=== PATIENT | male | born 1940 | race Caucasian/White ===

== ENCOUNTER 2018-07-05 21:11 | Observation (INO) ==
[2018-07-05] MEDS ORDERED: KETOROLAC 30 MG/1 ML VIAL IV STA (21:50)
[2018-07-05 21:59] LABS: Basophils % 0.1 % (0.0-0.8); Eosinophils # 0.3 10*3/uL (0.0-0.87); Eosinophils % 3.2 % (0.00-10.9); Hematocrit 42.2 VOL% (42.0-52.0); Hemoglobin 13.4 GM/DL (14.0-18.0); Immature Granulocytes % 0.4 %; Immature Granulocytes Absolute 0.04 #; Lymphocytes # 1.4 10*3/uL (1.4-4.0); Lymphocytes % 16.1 % (21.2-54.2); Mean Corpuscular HGB Conc 31.8 GM/DL (32-36); Mean Corpuscular Hemoglobin 30 PG (27-34); Mean Corpuscular Volume 95.5 FL (87-102); Mean Platelet Volume 11.4 FL (9.6-12.0); Monocytes # 1.3 10*3/uL (0.11-0.8); Monocytes % 14.1 % (1.7-12.7); Neutrophils # 5.9 10*3/uL (1.4-7.4); Neutrophils % 66.1 % (38.7-73.9); Platelet Count 125 T/CUMM (130-400); Red Blood Count 4.42 MC/CUMM (3.8-5.5); Red Cell Distribution Width 12.9 % (9.3-17.3); White Blood Count 8.9 T/CUMM (4-12)
[2018-07-05 22:04] LABS: Apearance,Urine CLEAR (Clear); Bilirubin,Urine Negative (Negative); Blood, Urine Negative (Negative); Glucose,Urine (UA) Negative (Negative); Ketones,Urine Negative (Negative); Nitrite,Urine Negative (Negative); Protein,Urine Negative; RBC,Urine <1 /HPF (0-4); Squamous Epithelial Cell,Urine Occasional /HPF (0-10); Urine Color Straw (Yellow); Urine Urobilinogen < 2.0 EU/DL (0.2-1.0); WBC,Urine 1 /HPF (0-6)
[2018-07-05 22:15] LABS: Albumin 3.1 G/DL (3.4-5.0); Bilirubin,Total 0.4 MG/DL (0.2-1.0); Calcium 8.5 MG/DL (8.5-10.1); Osmolality,Calculated 291.7 MOS/KG (273-304); Potassium 4.2 MMOL/L (3.5-5.1); Total Protein 6.5 G/DL (6.4-8.3)
[2018-07-05] MEDS ORDERED: CEFEPIME 2,000 MG in SODIUM CHLORIDE 0.9% 100 ML IV STA (23:54)
[2018-07-05] MEDS ORDERED: VANCOMYCIN INJ 1,000 MG in SODIUM CHLORIDE 0.9% 250 ML IV STA (23:55)
[2018-07-06] MEDS ORDERED: ALBUTEROL/IPRATROPIUM 3 ML NEB RESP TX STA (00:31)
[2018-07-06] MEDS ORDERED: DOCUSATE SODIUM 100 MG CAPSULE PO PRN (00:33)
[2018-07-06] MEDS ORDERED: ONDANSETRON 4 MG/2 ML VIAL IV PRN (00:33)
[2018-07-06] MEDS ORDERED: ALBUTEROL 2.5 MG/3 ML NEB RESP TX PRN (00:49)
[2018-07-06] MEDS: methylPREDNISolone SOD SUC 40 MG/1 ML VIAL IV SCH ×3 (01:54→16:51)
[2018-07-06] MEDS: ACETAMINOPHEN 325 MG TABLET PO PRN ×2 (01:57→18:27)
[2018-07-06] MEDS: traZODone 50 MG TABLET PO PRN ×2 (01:57→21:01)
[2018-07-06] MEDS: ALBUTEROL/IPRATROPIUM 3 ML NEB RESP TX SCH ×4 (02:05→18:30)
[2018-07-06] MEDS: LEVOFLOXACIN INJ 750 MG in PREMIX 1 EACH IV SCH ×2 (03:31→03:35)
[2018-07-06] MEDS: PIPERACILLIN/TAZOBACTAM 3,375 MG in SODIUM CHLORIDE 0.9% 100 ML IV SCH ×3 (05:05→21:17)
[2018-07-06 05:35] LABS: Basophils % 0.1 % (0.0-0.8); Eosinophils # 0.1 10*3/uL (0.0-0.87); Eosinophils % 0.9 % (0.00-10.9); Hematocrit 38.6 VOL% (42.0-52.0); Hemoglobin 12.5 GM/DL (14.0-18.0); Immature Granulocytes % 0.5 %; Immature Granulocytes Absolute 0.04 #; Lymphocytes # 0.3 10*3/uL (1.4-4.0); Lymphocytes % 4.3 % (21.2-54.2); Mean Corpuscular HGB Conc 32.4 GM/DL (32-36); Mean Corpuscular Hemoglobin 31 PG (27-34); Mean Corpuscular Volume 94.4 FL (87-102); Mean Platelet Volume 11.7 FL (9.6-12.0); Monocytes # 0.3 10*3/uL (0.11-0.8); Monocytes % 3.6 % (1.7-12.7); Neutrophils # 6.8 10*3/uL (1.4-7.4); Neutrophils % 90.6 % (38.7-73.9); Platelet Count 127 T/CUMM (130-400); Red Blood Count 4.09 MC/CUMM (3.8-5.5); Red Cell Distribution Width 12.9 % (9.3-17.3); White Blood Count 7.5 T/CUMM (4-12)
[2018-07-06 06:09] LABS: Calcium 8.1 MG/DL (8.5-10.1); Potassium 4.3 MMOL/L (3.5-5.1)
[2018-07-06 06:15] LABS: Eosinophils 1 % (0-10); Hypochromasia 1+; Lymphocytes 3 % (20-55); Ovalocytes Slight; Platelet Estimate Normal; Segmented Neutrophils 92 % (50-85); Total Cells Counted 100
[2018-07-06] MEDS: PRASUGREL 10 MG TABLET PO SCH (08:53)
[2018-07-06] MEDS: PANTOPRAZOLE 40 MG TABLET PO SCH (08:53)
[2018-07-06] MEDS: THEOPHYLLINE ER (24 HR) 400 MG TABLET PO SCH (08:53)
[2018-07-06] MEDS: ASPIRIN 325 MG TABLET PO SCH (08:53)
[2018-07-06] MEDS: guaiFENesin/DM ER 600-30 MG TABLET PO SCH ×2 (08:53→21:00)
[2018-07-06] MEDS: ATORVASTATIN 40 MG TABLET PO SCH (08:53)
[2018-07-06] MEDS: ENOXAPARIN 40 MG/0.4 ML SYRINGE SUBCUT SCH (08:54)
[2018-07-06] MEDS: GABAPENTIN 300 MG CAPSULE PO SCH (21:00)
[2018-07-07] MEDS ORDERED: NITROGLYCERIN SL 0.4 MG TABLET SL ONE (00:19)
[2018-07-07] MEDS ORDERED: ASPIRIN CHEW 81 MG TABLET PO ONE (00:20)
[2018-07-07] MEDS ORDERED: MORPHINE 4 MG/1 ML VIAL IV PRN (00:22)
[2018-07-07] MEDS ORDERED: NITROGLYCERIN SL 0.4 MG TABLET SL PRN (00:22)
[2018-07-07 00:34] LABS: Basophils % 0.1 % (0.0-0.8); Hematocrit 36.2 VOL% (42.0-52.0); Hemoglobin 11.7 GM/DL (14.0-18.0); Immature Granulocytes % 0.9 %; Lymphocytes # 0.3 10*3/uL (1.4-4.0); Lymphocytes % 2.8 % (21.2-54.2); Mean Corpuscular HGB Conc 32.3 GM/DL (32-36); Mean Corpuscular Hemoglobin 31 PG (27-34); Mean Corpuscular Volume 94.3 FL (87-102); Mean Platelet Volume 11.8 FL (9.6-12.0); Monocytes # 0.4 10*3/uL (0.11-0.8); Monocytes % 3.6 % (1.7-12.7); Neutrophils # 10.5 10*3/uL (1.4-7.4); Neutrophils % 92.6 % (38.7-73.9); Platelet Count 125 T/CUMM (130-400); Red Blood Count 3.84 MC/CUMM (3.8-5.5); Red Cell Distribution Width 12.8 % (9.3-17.3); White Blood Count 11.3 T/CUMM (4-12)
[2018-07-07] MEDS: ALBUTEROL/IPRATROPIUM 3 ML NEB RESP TX SCH ×4 (00:35→18:59)
[2018-07-07] MEDS: methylPREDNISolone SOD SUC 40 MG/1 ML VIAL IV SCH ×3 (00:57→18:25)
[2018-07-07] MEDS: ACETAMINOPHEN 325 MG TABLET PO PRN (01:00)
[2018-07-07 01:09] LABS: Albumin 2.7 G/DL (3.4-5.0); Bilirubin,Total 0.6 MG/DL (0.2-1.0); Osmolality,Calculated 298.3 MOS/KG (273-304); Potassium 4.3 MMOL/L (3.5-5.1); Total Protein 5.6 G/DL (6.4-8.3)
[2018-07-07 03:28] LABS: Band Neutrophils 1 % (0-10); Lymphocytes 6 % (20-55); Platelet Estimate Decreased; Segmented Neutrophils 90 % (50-85); Total Cells Counted 100
[2018-07-07] MEDS: LEVOFLOXACIN INJ 750 MG in PREMIX 1 EACH IV SCH (03:30)
[2018-07-07 04:55] LABS: Basophils % 0.1 % (0.0-0.8); Hematocrit 35.6 VOL% (42.0-52.0); Hemoglobin 11.5 GM/DL (14.0-18.0); Immature Granulocytes % 0.8 %; Immature Granulocytes Absolute 0.09 #; Lymphocytes # 0.3 10*3/uL (1.4-4.0); Lymphocytes % 2.7 % (21.2-54.2); Mean Corpuscular HGB Conc 32.3 GM/DL (32-36); Mean Corpuscular Hemoglobin 30 PG (27-34); Mean Platelet Volume 12.6 FL (9.6-12.0); Monocytes # 0.3 10*3/uL (0.11-0.8); Monocytes % 2.6 % (1.7-12.7); Neutrophils # 10.6 10*3/uL (1.4-7.4); Neutrophils % 93.8 % (38.7-73.9); Platelet Count 123 T/CUMM (130-400); Red Blood Count 3.83 MC/CUMM (3.8-5.5); White Blood Count 11.3 T/CUMM (4-12)
[2018-07-07 05:23] LABS: Calcium 8.2 MG/DL (8.5-10.1); Osmolality,Calculated 298.1 MOS/KG (273-304); Potassium 4.4 MMOL/L (3.5-5.1)
[2018-07-07] MEDS: PIPERACILLIN/TAZOBACTAM 3,375 MG in SODIUM CHLORIDE 0.9% 100 ML IV SCH ×3 (05:31→20:30)
[2018-07-07 06:27] LABS: Band Neutrophils 2 % (0-10); Lymphocytes 3 % (20-55); Platelet Estimate Decreased; Segmented Neutrophils 93 % (50-85); Total Cells Counted 100
[2018-07-07] MEDS: ASPIRIN 325 MG TABLET PO SCH (09:58)
[2018-07-07] MEDS: guaiFENesin/DM ER 600-30 MG TABLET PO SCH ×2 (09:58→20:26)
[2018-07-07] MEDS: PANTOPRAZOLE 40 MG TABLET PO SCH (09:58)
[2018-07-07] MEDS: ATORVASTATIN 40 MG TABLET PO SCH (09:58)
[2018-07-07] MEDS: THEOPHYLLINE ER (24 HR) 400 MG TABLET PO SCH (09:58)
[2018-07-07] MEDS: PRASUGREL 10 MG TABLET PO SCH (09:58)
[2018-07-07] MEDS: ENOXAPARIN 40 MG/0.4 ML SYRINGE SUBCUT SCH (09:59)
[2018-07-07] MEDS: GABAPENTIN 300 MG CAPSULE PO SCH (20:26)
[2018-07-08] MEDS: ALBUTEROL/IPRATROPIUM 3 ML NEB RESP TX SCH ×4 (00:31→20:18)
[2018-07-08] MEDS: methylPREDNISolone SOD SUC 40 MG/1 ML VIAL IV SCH ×3 (00:32→17:37)
[2018-07-08] MEDS: LEVOFLOXACIN INJ 750 MG in PREMIX 1 EACH IV SCH (02:49)
[2018-07-08] MEDS: PIPERACILLIN/TAZOBACTAM 3,375 MG in SODIUM CHLORIDE 0.9% 100 ML IV SCH ×3 (04:59→21:03)
[2018-07-08 05:37] LABS: Basophils % 0.1 % (0.0-0.8); Hematocrit 37.6 VOL% (42.0-52.0); Hemoglobin 11.8 GM/DL (14.0-18.0); Immature Granulocytes % 0.7 %; Lymphocytes # 0.3 10*3/uL (1.4-4.0); Lymphocytes % 1.8 % (21.2-54.2); Mean Corpuscular HGB Conc 31.4 GM/DL (32-36); Mean Corpuscular Hemoglobin 30 PG (27-34); Mean Corpuscular Volume 95.7 FL (87-102); Mean Platelet Volume 12.4 FL (9.6-12.0); Monocytes # 0.3 10*3/uL (0.11-0.8); Monocytes % 2.1 % (1.7-12.7); Neutrophils # 14.2 10*3/uL (1.4-7.4); Neutrophils % 95.3 % (38.7-73.9); Platelet Count 142 T/CUMM (130-400); Red Blood Count 3.93 MC/CUMM (3.8-5.5); Red Cell Distribution Width 13.2 % (9.3-17.3); White Blood Count 14.9 T/CUMM (4-12)
[2018-07-08 05:46] LABS: Calcium 8.3 MG/DL (8.5-10.1); Potassium 4.1 MMOL/L (3.5-5.1)
[2018-07-08 06:03] LABS: Hypochromasia 1+; Lymphocytes 2 % (20-55); Platelet Estimate Adequate; Segmented Neutrophils 96 % (50-85); Total Cells Counted 100
[2018-07-08] MEDS: PANTOPRAZOLE 40 MG TABLET PO SCH (08:28)
[2018-07-08] MEDS: ASPIRIN 325 MG TABLET PO SCH (08:28)
[2018-07-08] MEDS: THEOPHYLLINE ER (24 HR) 400 MG TABLET PO SCH (08:28)
[2018-07-08] MEDS: guaiFENesin/DM ER 600-30 MG TABLET PO SCH ×2 (08:28→21:03)
[2018-07-08] MEDS: PRASUGREL 10 MG TABLET PO SCH (08:28)
[2018-07-08] MEDS: ENOXAPARIN 40 MG/0.4 ML SYRINGE SUBCUT SCH (08:29)
[2018-07-08] MEDS: ATORVASTATIN 40 MG TABLET PO SCH (08:29)
[2018-07-08] MEDS: GABAPENTIN 300 MG CAPSULE PO SCH (21:03)
[2018-07-09] MEDS: ALBUTEROL/IPRATROPIUM 3 ML NEB RESP TX SCH ×2 (00:39→08:06)
[2018-07-09] MEDS: methylPREDNISolone SOD SUC 40 MG/1 ML VIAL IV SCH ×2 (00:45→08:33)
[2018-07-09] MEDS: LEVOFLOXACIN INJ 750 MG in PREMIX 1 EACH IV SCH (02:49)
[2018-07-09] MEDS: PIPERACILLIN/TAZOBACTAM 3,375 MG in SODIUM CHLORIDE 0.9% 100 ML IV SCH (04:36)
[2018-07-09] MEDS: guaiFENesin/DM ER 600-30 MG TABLET PO SCH (08:32)
[2018-07-09] MEDS: PRASUGREL 10 MG TABLET PO SCH (08:33)
[2018-07-09] MEDS: ENOXAPARIN 40 MG/0.4 ML SYRINGE SUBCUT SCH (08:33)
[2018-07-09] MEDS: PANTOPRAZOLE 40 MG TABLET PO SCH (08:33)
[2018-07-09] MEDS: THEOPHYLLINE ER (24 HR) 400 MG TABLET PO SCH (08:33)
[2018-07-09] MEDS: ATORVASTATIN 40 MG TABLET PO SCH (08:33)
[2018-07-09] MEDS: ASPIRIN 325 MG TABLET PO SCH (08:33)
[2018-07-09 09:48] VITALS: BP 130/67
== END 2018-07-09 09:25 | disposition home health service (06) ==
LOC: EDUNIT# → EDBD → N.ED 21:11 → INTOOBSV 07-06 00:21 → N.EDINP 07-06 00:21 → N.5E 07-06 00:50
PROVIDERS: ADMIT Internal Medicine; ATTEND Internal Medicine

== ENCOUNTER 2018-09-12 22:31 | Observation (INO) ==
[2018-09-12] MEDS ORDERED: methylPREDNISolone SOD SUC 125 MG/2 ML VIAL IV STA (22:57)
[2018-09-12] MEDS ORDERED: ALBUTEROL/IPRATROPIUM 3 ML NEB RESP TX STA (22:57)
[2018-09-12 23:05] LABS: Basophils # 0.1 10*3/uL (0.0-0.2); Basophils % 1.2 % (0.0-0.8); Eosinophils # 0.8 10*3/uL (0.0-0.87); Eosinophils % 10.9 % (0.00-10.9); Hematocrit 48.1 VOL% (42.0-52.0); Hemoglobin 15.3 GM/DL (14.0-18.0); Immature Granulocytes % 0.3 %; Immature Granulocytes Absolute 0.02 #; Lymphocytes # 1.2 10*3/uL (1.4-4.0); Mean Corpuscular HGB Conc 31.8 GM/DL (32-36); Mean Platelet Volume 11.3 FL (9.6-12.0); Neutrophils % 60.6 % (38.7-73.9); Platelet Count 170 T/CUMM (130-400); Red Blood Count 4.91 MC/CUMM (3.8-5.5); Red Cell Distribution Width 14.6 % (9.3-17.3); White Blood Count 7.4 T/CUMM (4-12)
[2018-09-12 23:26] LABS: Albumin 4.1 G/DL (3.4-5.0); Bilirubin,Total 0.9 MG/DL (0.2-1.0); Calcium 9.1 MG/DL (8.5-10.1); Total Protein 7.1 G/DL (6.4-8.3)
[2018-09-13] MEDS ORDERED: ALBUTEROL/IPRATROPIUM 3 ML NEB RESP TX ONE (00:03)
[2018-09-13] MEDS ORDERED: ALBUTEROL/IPRATROPIUM 3 ML NEB RESP TX STA (00:03)
[2018-09-13] MEDS ORDERED: LEVOFLOXACIN INJ 750 MG in PREMIX 1 EACH IV STA (00:15)
[2018-09-13] MEDS ORDERED: ACETAMINOPHEN 325 MG TABLET PO PRN ×2 (00:58)
[2018-09-13] MEDS ORDERED: ONDANSETRON 4 MG/2 ML VIAL IV PRN (00:58)
[2018-09-13] MEDS ORDERED: ZALEPLON 5 MG CAPSULE PO PRN (00:58)
[2018-09-13] MEDS ORDERED: BISACODYL 5 MG TABLET PO PRN (00:58)
[2018-09-13] MEDS ORDERED: NICOTINE 21 MG/24 HR PATCH TRANSDERM PRN (00:58)
[2018-09-13] MEDS ORDERED: ALBUTEROL 2.5 MG/3 ML NEB RESP TX PRN (01:04)
[2018-09-13] MEDS: ENOXAPARIN 40 MG/0.4 ML SYRINGE SUBCUT SCH (03:05)
[2018-09-13 07:02] LABS: Basophils % 0.4 % (0.0-0.8); Eosinophils % 0.2 % (0.00-10.9); Hematocrit 42.5 VOL% (42.0-52.0); Hemoglobin 13.8 GM/DL (14.0-18.0); Immature Granulocytes % 0.2 %; Immature Granulocytes Absolute 0.01 #; Lymphocytes # 0.3 10*3/uL (1.4-4.0); Lymphocytes % 6.2 % (21.2-54.2); Mean Corpuscular HGB Conc 32.5 GM/DL (32-36); Mean Corpuscular Volume 96.8 FL (87-102); Mean Platelet Volume 11.2 FL (9.6-12.0); Monocytes % 0.6 % (1.7-12.7); Neutrophils % 92.4 % (38.7-73.9); Platelet Count 156 T/CUMM (130-400); Red Blood Count 4.39 MC/CUMM (3.8-5.5); Red Cell Distribution Width 14.3 % (9.3-17.3); White Blood Count 4.7 T/CUMM (4-12)
[2018-09-13 07:21] LABS: Band Neutrophils 1 % (0-10); Hypochromasia 1+; Lymphocytes 7 % (20-55); Platelet Estimate Adequate; Segmented Neutrophils 92 % (50-85); Total Cells Counted 100
[2018-09-13] MEDS: ALBUTEROL/IPRATROPIUM 3 ML NEB RESP TX SCH ×3 (07:23→19:15)
[2018-09-13 07:31] LABS: Calcium 9.1 MG/DL (8.5-10.1); Osmolality,Calculated 288.4 MOS/KG (273-304)
[2018-09-13] MEDS: methylPREDNISolone SOD SUC 40 MG/1 ML VIAL IV SCH ×2 (09:28→16:46)
[2018-09-14] MEDS: methylPREDNISolone SOD SUC 40 MG/1 ML VIAL IV SCH ×3 (01:16→16:58)
[2018-09-14] MEDS: ENOXAPARIN 40 MG/0.4 ML SYRINGE SUBCUT SCH ×2 (01:16→01:22)
[2018-09-14] MEDS: LEVOFLOXACIN INJ 750 MG in PREMIX 1 EACH IV SCH (01:16)
[2018-09-14] MEDS: ALBUTEROL/IPRATROPIUM 3 ML NEB RESP TX SCH ×4 (01:32→19:51)
[2018-09-14 07:13] LABS: Basophils % 0.1 % (0.0-0.8); Hematocrit 41.8 VOL% (42.0-52.0); Hemoglobin 13.8 GM/DL (14.0-18.0); Immature Granulocytes % 0.3 %; Immature Granulocytes Absolute 0.04 #; Lymphocytes # 0.6 10*3/uL (1.4-4.0); Mean Platelet Volume 11.7 FL (9.6-12.0); Monocytes % 2.6 % (1.7-12.7); Platelet Count 152 T/CUMM (130-400); White Blood Count 11.5 T/CUMM (4-12)
[2018-09-14 07:37] LABS: Calcium 9.2 MG/DL (8.5-10.1); Osmolality,Calculated 292.1 MOS/KG (273-304)
[2018-09-14 07:38] LABS: Band Neutrophils 1 % (0-10); Eosinophils 1 % (0-10); Hypochromasia Slight; Lymphocytes 7 % (20-55); Platelet Estimate Adequate; Segmented Neutrophils 90 % (50-85); Total Cells Counted 100
[2018-09-15] MEDS: methylPREDNISolone SOD SUC 40 MG/1 ML VIAL IV SCH ×3 (00:30→18:03)
[2018-09-15] MEDS: LEVOFLOXACIN INJ 750 MG in PREMIX 1 EACH IV SCH (00:34)
[2018-09-15] MEDS: ALBUTEROL/IPRATROPIUM 3 ML NEB RESP TX SCH ×4 (00:45→20:13)
[2018-09-15] MEDS: ENOXAPARIN 40 MG/0.4 ML SYRINGE SUBCUT SCH (01:11)
[2018-09-15 05:34] LABS: Basophils % 0.1 % (0.0-0.8); Hematocrit 41.2 VOL% (42.0-52.0); Hemoglobin 13.4 GM/DL (14.0-18.0); Immature Granulocytes % 1.4 %; Immature Granulocytes Absolute 0.19 #; Lymphocytes # 0.4 10*3/uL (1.4-4.0); Lymphocytes % 2.6 % (21.2-54.2); Mean Corpuscular HGB Conc 32.5 GM/DL (32-36); Mean Corpuscular Volume 96.5 FL (87-102); Mean Platelet Volume 12.1 FL (9.6-12.0); Monocytes % 2.1 % (1.7-12.7); Neutrophils % 93.8 % (38.7-73.9); Platelet Count 153 T/CUMM (130-400); Red Blood Count 4.27 MC/CUMM (3.8-5.5); Red Cell Distribution Width 14.2 % (9.3-17.3); White Blood Count 13.4 T/CUMM (4-12)
[2018-09-15 06:01] LABS: Osmolality,Calculated 298.8 MOS/KG (273-304)
[2018-09-15 06:08] LABS: Band Neutrophils 6 % (0-10); Lymphocytes 2 % (20-55); Platelet Estimate Adequate; Segmented Neutrophils 91 % (50-85); Total Cells Counted 100
[2018-09-15] MEDS: ATORVASTATIN 40 MG TABLET PO SCH (22:22)
[2018-09-15] MEDS ORDERED: GABAPENTIN 300 MG CAPSULE PO SCH (22:30)
[2018-09-16] MEDS: LEVOFLOXACIN INJ 750 MG in PREMIX 1 EACH IV SCH (01:52)
[2018-09-16] MEDS: methylPREDNISolone SOD SUC 40 MG/1 ML VIAL IV SCH ×2 (01:52→09:42)
[2018-09-16] MEDS: ENOXAPARIN 40 MG/0.4 ML SYRINGE SUBCUT SCH (01:53)
[2018-09-16] MEDS: ALBUTEROL/IPRATROPIUM 3 ML NEB RESP TX SCH ×2 (02:04→07:37)
[2018-09-16 08:15] VITALS: BP 118/64
[2018-09-16] MEDS ORDERED: PANTOPRAZOLE 40 MG TABLET PO SCH (09:00)
[2018-09-16] MEDS ORDERED: CLOPIDOGREL 75 MG TABLET PO SCH (09:00)
[2018-09-16] MEDS ORDERED: ASPIRIN 325 MG TABLET PO SCH (09:00)
[2018-09-16] MEDS ORDERED: FLUTICASONE/SALMETEROL 500-50 DISKUS 14 DOSE INH SCH (09:00)
[2018-09-16] MEDS: ATORVASTATIN 40 MG TABLET PO SCH (10:05)
== END 2018-09-16 14:20 | disposition home or self-care (01) | DRG 192 ==
LOC: EDUNIT# → EDBD → N.ED 22:31 → N.EDINP 09-13 00:58 → SUATTDRO 09-13 00:59 → INTOOBSV 09-13 00:59 → N.5E 09-13 01:43
PROVIDERS: ADMIT Family Medicine; ATTEND Internal Medicine

== ENCOUNTER 2018-12-09 23:15 | Observation (INO) ==
[2018-12-10 00:06] LABS: Basophils # 0.1 10*3/uL (0.0-0.2); Eosinophils # 0.7 10*3/uL (0.0-0.87); Eosinophils % 8.1 % (0.00-10.9); Hematocrit 44.4 VOL% (42.0-52.0); Hemoglobin 14.2 GM/DL (14.0-18.0); Immature Granulocytes % 0.3 %; Immature Granulocytes Absolute 0.03 #; Lymphocytes # 1.5 10*3/uL (1.4-4.0); Lymphocytes % 16.6 % (21.2-54.2); Mean Corpuscular Volume 96.7 FL (87-102); Mean Platelet Volume 11.5 FL (9.6-12.0); Monocytes % 9.9 % (1.7-12.7); Neutrophils % 64.1 % (38.7-73.9); Platelet Count 184 T/CUMM (130-400); Red Blood Count 4.59 MC/CUMM (3.8-5.5); Red Cell Distribution Width 13.3 % (9.3-17.3); White Blood Count 9.2 T/CUMM (4-12)
[2018-12-10] MEDS ORDERED: methylPREDNISolone SOD SUC 125 MG/2 ML VIAL IV STA (00:08)
[2018-12-10] MEDS ORDERED: AZITHROMYCIN 250 MG TABLET PO STA (00:09)
[2018-12-10] MEDS ORDERED: ALBUTEROL/IPRATROPIUM 3 ML NEB RESP TX STA (00:09)
[2018-12-10] MEDS ORDERED: cefTRIAXone 1,000 MG in SODIUM CHLORIDE 0.9% 100 ML IV STA (00:09)
[2018-12-10 00:14] LABS: Albumin 3.8 G/DL (3.4-5.0); Bilirubin,Total 0.6 MG/DL (0.2-1.0); Osmolality,Calculated 284.4 MOS/KG (273-304); Total Protein 7.7 G/DL (6.4-8.3)
[2018-12-10] MEDS ORDERED: ONDANSETRON 4 MG/2 ML VIAL IV PRN (03:12)
[2018-12-10] MEDS ORDERED: ACETAMINOPHEN 500 MG TABLET PO ONE (04:03)
[2018-12-10] MEDS ORDERED: ACETAMINOPHEN 500 MG TABLET ONE (04:04)
[2018-12-10 05:17] LABS: Basophils % 0.4 % (0.0-0.8); Eosinophils # 0.1 10*3/uL (0.0-0.87); Eosinophils % 0.8 % (0.00-10.9); Hematocrit 42.1 VOL% (42.0-52.0); Hemoglobin 13.6 GM/DL (14.0-18.0); Immature Granulocytes % 0.4 %; Immature Granulocytes Absolute 0.03 #; Lymphocytes # 0.4 10*3/uL (1.4-4.0); Mean Corpuscular HGB Conc 32.3 GM/DL (32-36); Mean Corpuscular Volume 96.3 FL (87-102); Mean Platelet Volume 11.5 FL (9.6-12.0); Monocytes % 1.2 % (1.7-12.7); Neutrophils % 92.2 % (38.7-73.9); Platelet Count 166 T/CUMM (130-400); Red Blood Count 4.37 MC/CUMM (3.8-5.5); Red Cell Distribution Width 13.3 % (9.3-17.3); White Blood Count 7.5 T/CUMM (4-12)
[2018-12-10 05:39] LABS: Eosinophils 5 % (0-10); Hypochromasia Slight; Lymphocytes 6 % (20-55); Platelet Estimate Adequate; Segmented Neutrophils 88 % (50-85); Total Cells Counted 100
[2018-12-10 05:44] LABS: Albumin 3.5 G/DL (3.4-5.0); Bilirubin,Total 0.7 MG/DL (0.2-1.0); Calcium 9.1 MG/DL (8.5-10.1); Osmolality,Calculated 286.4 MOS/KG (273-304)
[2018-12-10] MEDS: ALBUTEROL/IPRATROPIUM 3 ML NEB RESP TX SCH ×3 (07:21→19:59)
[2018-12-10] MEDS ORDERED: PANTOPRAZOLE 40 MG TABLET PO SCH (09:00)
[2018-12-10] MEDS: ENOXAPARIN 40 MG/0.4 ML SYRINGE SUBCUT SCH (09:09)
[2018-12-10] MEDS: methylPREDNISolone SOD SUC 40 MG/1 ML VIAL IV SCH ×2 (09:09→17:11)
[2018-12-10] MEDS: ATORVASTATIN 40 MG TABLET PO SCH (09:09)
[2018-12-10] MEDS: ASPIRIN 325 MG TABLET PO SCH (09:09)
[2018-12-10] MEDS: PANTOPRAZOLE 40 MG TABLET PO SCH (09:09)
[2018-12-10] MEDS: CLOPIDOGREL 75 MG TABLET PO SCH (09:09)
[2018-12-10] MEDS: FLUTICASONE/SALMETEROL 500-50 DISKUS 14 DOSE INH SCH ×2 (09:11→20:14)
[2018-12-10] MEDS ORDERED: GABAPENTIN 300 MG CAPSULE PO SCH (21:00)
[2018-12-11] MEDS: ALBUTEROL/IPRATROPIUM 3 ML NEB RESP TX SCH ×2 (00:15→07:57)
[2018-12-11] MEDS ORDERED: AZITHROMYCIN INJ 500 MG in SODIUM CHLORIDE 0.9% 250 ML IV SCH (01:00)
[2018-12-11] MEDS ORDERED: cefTRIAXone 1,000 MG in SYRINGE 1 EACH IV SCH (01:00)
[2018-12-11] MEDS: methylPREDNISolone SOD SUC 40 MG/1 ML VIAL IV SCH ×2 (01:46→08:30)
[2018-12-11] MEDS: ATORVASTATIN 40 MG TABLET PO SCH (08:30)
[2018-12-11] MEDS: ENOXAPARIN 40 MG/0.4 ML SYRINGE SUBCUT SCH (08:30)
[2018-12-11] MEDS: FLUTICASONE/SALMETEROL 500-50 DISKUS 14 DOSE INH SCH (08:30)
[2018-12-11] MEDS: ASPIRIN 325 MG TABLET PO SCH (08:30)
[2018-12-11] MEDS: CLOPIDOGREL 75 MG TABLET PO SCH (08:31)
[2018-12-11] MEDS: PANTOPRAZOLE 40 MG TABLET PO SCH (08:31)
[2018-12-11 11:11] VITALS: BP 116/57
== END 2018-12-11 13:59 | disposition home or self-care (01) ==
LOC: N.ED 23:15 → INTOOBSV 12-10 03:13 → N.EDINP 12-10 03:13 → N.3E 12-10 03:43
PROVIDERS: ADMIT Internal Medicine; ATTEND Internal Medicine

== ENCOUNTER 2020-07-24 10:13 | Observation (INO) ==
[2020-07-24] MEDS ORDERED: methylPREDNISolone SOD SUC 125 MG/2 ML VIAL IV STA (10:33)
[2020-07-24] MEDS ORDERED: ALBUTEROL NEB SOLN 5 MG/ML 20 ML/BOTTLE CONT NEB STA (10:33)
[2020-07-24 10:57] LABS: Basophils # 0.1 10*3/uL (0.0-0.2); Basophils % 1.5 % (0.0-0.8); Eosinophils # 0.7 10*3/uL (0.0-0.87); Eosinophils % 8.1 % (0.00-10.9); Hematocrit 47.4 VOL% (42.0-52.0); Hemoglobin 15.3 GM/DL (14.0-18.0); Immature Granulocytes % 0.4 %; Immature Granulocytes Absolute 0.03 #; Lymphocytes # 1.6 10*3/uL (1.4-4.0); Lymphocytes % 18.8 % (21.2-54.2); Mean Corpuscular HGB Conc 32.3 GM/DL (32-36); Mean Corpuscular Volume 98.1 FL (87-102); Mean Platelet Volume 10.4 FL (9.6-12.0); Monocytes % 9.6 % (1.7-12.7); Neutrophils % 61.6 % (38.7-73.9); Platelet Count 173 T/CUMM (130-400); Red Blood Count 4.83 MC/CUMM (3.8-5.5); Red Cell Distribution Width 13.2 % (9.3-17.3); White Blood Count 8.2 T/CUMM (4-12)
[2020-07-24 11:35] LABS: Bilirubin,Total 0.4 MG/DL (0.2-1.0); Calcium 9.1 MG/DL (8.5-10.1); Osmolality,Calculated 285.4 MOS/KG (273-304); Potassium 4.4 MMOL/L (3.5-5.1); Total Protein 7.6 G/DL (6.4-8.2)
[2020-07-24] MEDS ORDERED: LEVOFLOXACIN INJ 500 MG in PREMIX 1 EACH IV STA (11:40)
[2020-07-24] MEDS ORDERED: ACETAMINOPHEN 325 MG TABLET PO PRN (11:52)
[2020-07-24] MEDS ORDERED: DOCUSATE SODIUM 100 MG CAPSULE PO PRN (11:52)
[2020-07-24] MEDS ORDERED: ONDANSETRON 4 MG/2 ML VIAL IV PRN (11:52)
[2020-07-24] MEDS ORDERED: DEXTROSE 50% 25 GM/50 ML VIAL IV PRN (11:52)
[2020-07-24] MEDS ORDERED: GLUCAGON 1 MG VIAL IM PRN (11:52)
[2020-07-24] MEDS: ALBUTEROL/IPRATROPIUM 3 ML NEB RESP TX SCH ×2 (13:50→19:20)
[2020-07-24] MEDS: ENOXAPARIN 40 MG/0.4 ML SYRINGE SUBCUT SCH (13:54)
[2020-07-24] MEDS: PANTOPRAZOLE 40 MG TABLET PO SCH (13:54)
[2020-07-24] MEDS: NICOTINE 21 MG/24 HR PATCH TRANSDERM SCH (13:56)
[2020-07-24] MEDS: methylPREDNISolone SOD SUC 40 MG/1 ML VIAL IV SCH (20:50)
[2020-07-25] MEDS: ALBUTEROL/IPRATROPIUM 3 ML NEB RESP TX SCH ×4 (00:48→19:36)
[2020-07-25 05:16] LABS: Basophils % 0.2 % (0.0-0.8); Hematocrit 43.2 VOL% (42.0-52.0); Hemoglobin 14.6 GM/DL (14.0-18.0); Immature Granulocytes % 0.4 %; Immature Granulocytes Absolute 0.04 #; Lymphocytes # 0.7 10*3/uL (1.4-4.0); Lymphocytes % 6.8 % (21.2-54.2); Mean Corpuscular HGB Conc 33.8 GM/DL (32-36); Mean Corpuscular Volume 94.1 FL (87-102); Mean Platelet Volume 11.3 FL (9.6-12.0); Neutrophils % 90.6 % (38.7-73.9); Platelet Count 171 T/CUMM (130-400); Red Blood Count 4.59 MC/CUMM (3.8-5.5); Red Cell Distribution Width 12.9 % (9.3-17.3); White Blood Count 9.7 T/CUMM (4-12)
[2020-07-25 05:41] LABS: Calcium 8.9 MG/DL (8.5-10.1); Osmolality,Calculated 290.3 MOS/KG (273-304); Potassium 4.3 MMOL/L (3.5-5.1)
[2020-07-25 05:47] LABS: Band Neutrophils 4 % (0-10); Lymphocytes 6 % (20-55); Segmented Neutrophils 87 % (50-85); Total Cells Counted 100
[2020-07-25 05:48] LABS: Microcytosis Slight; Ovalocytes Slight
[2020-07-25 05:49] LABS: Platelet Estimate Adequate
[2020-07-25] MEDS: NICOTINE 21 MG/24 HR PATCH TRANSDERM SCH (08:56)
[2020-07-25] MEDS: methylPREDNISolone SOD SUC 40 MG/1 ML VIAL IV SCH (08:56)
[2020-07-25] MEDS: PANTOPRAZOLE 40 MG TABLET PO SCH (08:56)
[2020-07-25] MEDS ORDERED: ALBUTEROL 2.5 MG/3 ML NEB RESP TX PRN (10:44)
[2020-07-25] MEDS: CLOPIDOGREL 75 MG TABLET PO SCH (12:09)
[2020-07-25] MEDS: cilostazoL 100 MG TABLET PO SCH ×2 (12:09→20:20)
[2020-07-25] MEDS: ENOXAPARIN 40 MG/0.4 ML SYRINGE SUBCUT SCH (12:09)
[2020-07-25] MEDS: Fluticasone-Umeclidin-Vilanter [Trelegy Ellipta] 100-62.5-25 mcg INH SCH (12:09)
[2020-07-25] MEDS: PENTOXIFYLLINE 400 MG TABLET PO SCH ×2 (12:09→16:57)
[2020-07-25] MEDS: TAMSULOSIN 0.4 MG CAPSULE PO SCH (12:09)
[2020-07-25] MEDS: carvediloL 3.125 MG TABLET PO SCH ×2 (12:09→20:20)
[2020-07-25] MEDS: ASPIRIN EC 81 MG TABLET PO SCH (12:09)
[2020-07-25] MEDS: ATORVASTATIN 40 MG TABLET PO SCH (12:10)
[2020-07-25] MEDS: GABAPENTIN 100 MG CAPSULE PO SCH (20:20)
[2020-07-25] MEDS ORDERED: MELATONIN 3 MG TABLET PO SCH (21:00)
[2020-07-26] MEDS: ALBUTEROL/IPRATROPIUM 3 ML NEB RESP TX SCH ×2 (03:13→07:20)
[2020-07-26 05:41] LABS: Basophils # 0.1 10*3/uL (0.0-0.2); Basophils % 0.7 % (0.0-0.8); Eosinophils # 0.2 10*3/uL (0.0-0.87); Eosinophils % 1.5 % (0.00-10.9); Hematocrit 44.8 VOL% (42.0-52.0); Hemoglobin 15.1 GM/DL (14.0-18.0); Immature Granulocytes % 0.4 %; Immature Granulocytes Absolute 0.04 #; Lymphocytes # 2.3 10*3/uL (1.4-4.0); Lymphocytes % 20.6 % (21.2-54.2); Mean Corpuscular HGB Conc 33.7 GM/DL (32-36); Mean Corpuscular Volume 95.5 FL (87-102); Mean Platelet Volume 11.5 FL (9.6-12.0); Monocytes % 7.4 % (1.7-12.7); Neutrophils % 69.4 % (38.7-73.9); Platelet Count 173 T/CUMM (130-400); Red Blood Count 4.69 MC/CUMM (3.8-5.5); Red Cell Distribution Width 13.2 % (9.3-17.3)
[2020-07-26 06:07] LABS: Folate 12.7 NG/ML (5.38-24.0); Vitamin B12 565 PG/ML (211-911)
[2020-07-26 06:08] LABS: Calcium 8.8 MG/DL (8.5-10.1); Osmolality,Calculated 289.4 MOS/KG (273-304); Potassium 3.9 MMOL/L (3.5-5.1)
[2020-07-26 06:42] LABS: Sedimentation Rate-Westergren 15 MM/HR (0-20)
[2020-07-26 07:41] VITALS: BP 135/73
[2020-07-26] MEDS: NICOTINE 21 MG/24 HR PATCH TRANSDERM SCH (08:16)
[2020-07-26] MEDS: cilostazoL 100 MG TABLET PO SCH (08:17)
[2020-07-26] MEDS: PANTOPRAZOLE 40 MG TABLET PO SCH (08:17)
[2020-07-26] MEDS: carvediloL 3.125 MG TABLET PO SCH (08:17)
[2020-07-26] MEDS: CLOPIDOGREL 75 MG TABLET PO SCH (08:18)
[2020-07-26] MEDS: GABAPENTIN 100 MG CAPSULE PO SCH (08:18)
[2020-07-26] MEDS: ATORVASTATIN 40 MG TABLET PO SCH (08:18)
[2020-07-26] MEDS: ASPIRIN EC 81 MG TABLET PO SCH (08:18)
[2020-07-26] MEDS: PENTOXIFYLLINE 400 MG TABLET PO SCH (08:18)
[2020-07-26] MEDS: TAMSULOSIN 0.4 MG CAPSULE PO SCH (08:18)
[2020-07-26 08:26] LABS: Hemoglobin A1 (Alkaline) 97.5 % (96.5-98.5); Hemoglobin A2 (Alkaline) 2.5 % (1.5-3.5)
[2020-07-26] MEDS ORDERED: predniSONE 20 MG TABLET PO SCH (09:00)
[2020-07-26] MEDS: Fluticasone-Umeclidin-Vilanter [Trelegy Ellipta] 100-62.5-25 mcg INH SCH (09:34)
== END 2020-07-26 11:31 | disposition home or self-care (01) ==
LOC: EDUNIT# → EDBD → N.ED 10:13 → N.EDINP 10:13 → N.3E 17:05
PROVIDERS: ADMIT Hospitalist; ATTEND Hospitalist

== ENCOUNTER 2020-08-15 20:04 | Inpatient (IN) ==
[2020-08-15 20:28] LABS: Basophils # 0.1 10*3/uL (0.0-0.2); Basophils % 1.3 % (0.0-0.8); Eosinophils # 0.7 10*3/uL (0.0-0.87); Eosinophils % 8.1 % (0.00-10.9); Hematocrit 45.3 VOL% (42.0-52.0); Hemoglobin 14.4 GM/DL (14.0-18.0); Immature Granulocytes % 0.2 %; Immature Granulocytes Absolute 0.02 #; Lymphocytes # 1.9 10*3/uL (1.4-4.0); Lymphocytes % 22.2 % (21.2-54.2); Mean Corpuscular HGB Conc 31.8 GM/DL (32-36); Mean Corpuscular Volume 100.2 FL (87-102); Mean Platelet Volume 10.7 FL (9.6-12.0); Monocytes % 8.7 % (1.7-12.7); Neutrophils % 59.5 % (38.7-73.9); Platelet Count 179 T/CUMM (130-400); Red Blood Count 4.52 MC/CUMM (3.8-5.5); Red Cell Distribution Width 13.5 % (9.3-17.3); White Blood Count 8.4 T/CUMM (4-12)
[2020-08-15] MEDS ORDERED: ALBUTEROL/IPRATROPIUM 3 ML NEB RESP TX STA (20:36)
[2020-08-15] MEDS ORDERED: methylPREDNISolone SOD SUC 125 MG/2 ML VIAL IV STA (20:37)
[2020-08-15 20:52] LABS: Eosinophils 7 % (0-10); Lymphocytes 27 % (20-55); Segmented Neutrophils 58 % (50-85); Total Cells Counted 100
[2020-08-15 20:53] LABS: Anisocytosis Slight; Atypical Lymphocytes Few; Macrocytosis Slight; Platelet Estimate Adequate
[2020-08-15 20:57] LABS: Alanine Aminotransferase 54 U/L (16-61); Albumin 3.5 G/DL (3.4-5.0); Alkaline Phosphatase 117 U/L (45-117); Aspartate Amino Transferase 42 U/L (0-37); Bilirubin,Total < 0.39 MG/DL (0.2-1.0); Blood Urea Nitrogen 22 MG/DL (7-18); Calcium 8.2 MG/DL (8.5-10.1); Carbon Dioxide 28 MMOL/L (21-32); Estimated Glom Filtration Rate 62 ML/MIN; Glucose 107 MG/DL (74-106); Osmolality,Calculated 292.6 MOS/KG (273-304); Potassium 4.6 MMOL/L (3.5-5.1); Sodium 146 MMOL/L (136-145); Total Protein 7.1 G/DL (6.4-8.2)
[2020-08-15 21:03] LABS: ABG Base Excess -0.9 MMOL/L (-2.5-2.5); ABG HCO3 23.7 MMOL/L (20-26); ABG Oxygen Saturation 99.5 % (95-100); ABG PCO2 65.7 MM HG (35-48); ABG PH 7.248 (7.35-7.45); ABG TCO2 25.2 MMOL/L (23-27)
[2020-08-15] MEDS ORDERED: GLUCAGON 1 MG VIAL IM PRN (22:46)
[2020-08-15] MEDS ORDERED: DEXTROSE 50% 25 GM/50 ML VIAL IV PRN (22:46)
[2020-08-15] MEDS ORDERED: ONDANSETRON 4 MG/2 ML VIAL IV PRN (22:46)
[2020-08-15] MEDS ORDERED: ACETAMINOPHEN 325 MG TABLET PO PRN (22:46)
[2020-08-15] MEDS ORDERED: ALBUTEROL 2.5 MG/3 ML NEB RESP TX PRN (23:06)
[2020-08-16] MEDS: ENOXAPARIN 40 MG/0.4 ML SYRINGE SUBCUT SCH ×2 (00:43→23:29)
[2020-08-16] MEDS: cilostazoL 100 MG TABLET PO SCH ×3 (00:43→20:34)
[2020-08-16] MEDS: cefTRIAXone 1,000 MG in SODIUM CHLORIDE 0.9% 100 ML IV SCH ×2 (00:44→23:30)
[2020-08-16] MEDS: ALBUTEROL/IPRATROPIUM 3 ML NEB RESP TX SCH ×4 (00:55→19:15)
[2020-08-16] MEDS: ZALEPLON 5 MG CAPSULE PO PRN (01:09)
[2020-08-16] MEDS: methylPREDNISolone SOD SUC 40 MG/1 ML VIAL IV SCH ×3 (05:58→22:20)
[2020-08-16 07:17] LABS: Basophils % 0.2 % (0.0-0.8); Hematocrit 40.7 VOL% (42.0-52.0); Hemoglobin 13.6 GM/DL (14.0-18.0); Immature Granulocytes % 0.2 %; Immature Granulocytes Absolute 0.01 #; Lymphocytes # 0.4 10*3/uL (1.4-4.0); Lymphocytes % 10.7 % (21.2-54.2); Mean Corpuscular HGB Conc 33.4 GM/DL (32-36); Mean Corpuscular Volume 97.1 FL (87-102); Mean Platelet Volume 10.8 FL (9.6-12.0); Monocytes % 1.2 % (1.7-12.7); Neutrophils % 87.7 % (38.7-73.9); Platelet Count 156 T/CUMM (130-400); Red Blood Count 4.19 MC/CUMM (3.8-5.5); Red Cell Distribution Width 13.2 % (9.3-17.3); White Blood Count 4.1 T/CUMM (4-12)
[2020-08-16 07:37] LABS: Albumin 3.2 G/DL (3.4-5.0); Bilirubin,Total 0.5 MG/DL (0.2-1.0); Calcium 8.9 MG/DL (8.5-10.1); Osmolality,Calculated 287.3 MOS/KG (273-304); Potassium 4.7 MMOL/L (3.5-5.1); Total Protein 6.6 G/DL (6.4-8.2)
[2020-08-16] MEDS: NICOTINE 21 MG/24 HR PATCH TRANSDERM SCH (08:57)
[2020-08-16] MEDS: TAMSULOSIN 0.4 MG CAPSULE PO SCH (08:58)
[2020-08-16] MEDS: ASPIRIN EC 81 MG TABLET PO SCH (08:58)
[2020-08-16] MEDS: ATORVASTATIN 40 MG TABLET PO SCH (08:58)
[2020-08-16] MEDS: CLOPIDOGREL 75 MG TABLET PO SCH (08:58)
[2020-08-16] MEDS: PENTOXIFYLLINE 400 MG TABLET PO SCH ×3 (08:58→18:11)
[2020-08-16] MEDS: PANTOPRAZOLE 40 MG TABLET PO SCH (08:58)
[2020-08-16] MEDS: carvediloL 3.125 MG TABLET PO SCH ×2 (08:59→20:34)
[2020-08-16] MEDS: GABAPENTIN 100 MG CAPSULE PO SCH ×2 (08:59→20:34)
[2020-08-16] MEDS: NON-FORMULARY MEDICATION (Fluticasone-Umeclidin-Vilanter [Trelegy Ellipta] 100-62.5-25 mcg INH SCH (09:13)
[2020-08-17] MEDS: ALBUTEROL/IPRATROPIUM 3 ML NEB RESP TX SCH ×5 (01:06→19:58)
[2020-08-17 05:53] LABS: Basophils % 0.1 % (0.0-0.8); Hematocrit 39.4 VOL% (42.0-52.0); Hemoglobin 12.6 GM/DL (14.0-18.0); Immature Granulocytes % 0.7 %; Immature Granulocytes Absolute 0.08 #; Lymphocytes # 0.6 10*3/uL (1.4-4.0); Lymphocytes % 5.3 % (21.2-54.2); Mean Corpuscular Volume 99.7 FL (87-102); Mean Platelet Volume 11.3 FL (9.6-12.0); Monocytes % 4.2 % (1.7-12.7); Neutrophils % 89.7 % (38.7-73.9); Platelet Count 152 T/CUMM (130-400); Red Blood Count 3.95 MC/CUMM (3.8-5.5); Red Cell Distribution Width 13.2 % (9.3-17.3); White Blood Count 11.6 T/CUMM (4-12)
[2020-08-17 06:27] LABS: Calcium 8.4 MG/DL (8.5-10.1); Osmolality,Calculated 289.3 MOS/KG (273-304); Potassium 4.2 MMOL/L (3.5-5.1)
[2020-08-17] MEDS: methylPREDNISolone SOD SUC 40 MG/1 ML VIAL IV SCH ×3 (06:29→22:15)
[2020-08-17] MEDS: cilostazoL 100 MG TABLET PO SCH ×2 (08:47→20:44)
[2020-08-17] MEDS: PENTOXIFYLLINE 400 MG TABLET PO SCH ×3 (08:47→17:14)
[2020-08-17] MEDS: ASPIRIN EC 81 MG TABLET PO SCH (08:47)
[2020-08-17] MEDS: ATORVASTATIN 40 MG TABLET PO SCH (08:47)
[2020-08-17] MEDS: TAMSULOSIN 0.4 MG CAPSULE PO SCH (08:47)
[2020-08-17] MEDS: NICOTINE 21 MG/24 HR PATCH TRANSDERM SCH (08:47)
[2020-08-17] MEDS: GABAPENTIN 100 MG CAPSULE PO SCH ×2 (08:48→20:44)
[2020-08-17] MEDS: PANTOPRAZOLE 40 MG TABLET PO SCH (08:48)
[2020-08-17] MEDS: CLOPIDOGREL 75 MG TABLET PO SCH (08:48)
[2020-08-17] MEDS: carvediloL 3.125 MG TABLET PO SCH (08:48)
[2020-08-17] MEDS: NON-FORMULARY MEDICATION (Fluticasone-Umeclidin-Vilanter [Trelegy Ellipta] 100-62.5-25 mcg INH SCH (08:50)
[2020-08-17] MEDS: cefTRIAXone 1,000 MG in SODIUM CHLORIDE 0.9% 100 ML IV SCH (23:10)
[2020-08-17] MEDS: ENOXAPARIN 40 MG/0.4 ML SYRINGE SUBCUT SCH (23:10)
[2020-08-18] MEDS: ALBUTEROL/IPRATROPIUM 3 ML NEB RESP TX SCH ×7 (00:27→23:00)
[2020-08-18] MEDS: methylPREDNISolone SOD SUC 40 MG/1 ML VIAL IV SCH ×3 (05:29→21:36)
[2020-08-18 06:15] LABS: Basophils % 0.1 % (0.0-0.8); Hematocrit 39.5 VOL% (42.0-52.0); Immature Granulocytes % 0.4 %; Immature Granulocytes Absolute 0.05 #; Lymphocytes # 0.6 10*3/uL (1.4-4.0); Lymphocytes % 5.5 % (21.2-54.2); Mean Corpuscular HGB Conc 32.9 GM/DL (32-36); Mean Corpuscular Volume 96.8 FL (87-102); Mean Platelet Volume 11.1 FL (9.6-12.0); Monocytes % 2.3 % (1.7-12.7); Neutrophils % 91.7 % (38.7-73.9); Platelet Count 154 T/CUMM (130-400); Red Blood Count 4.08 MC/CUMM (3.8-5.5); Red Cell Distribution Width 13.2 % (9.3-17.3); White Blood Count 11.2 T/CUMM (4-12)
[2020-08-18 06:41] LABS: Calcium 8.4 MG/DL (8.5-10.1); Osmolality,Calculated 288.3 MOS/KG (273-304)
[2020-08-18 08:07] LABS: Lymphocytes 3 % (20-55); Platelet Estimate Adequate; Segmented Neutrophils 90 % (50-85); Total Cells Counted 100
[2020-08-18] MEDS: ATORVASTATIN 40 MG TABLET PO SCH (08:40)
[2020-08-18] MEDS: TAMSULOSIN 0.4 MG CAPSULE PO SCH (08:40)
[2020-08-18] MEDS: PENTOXIFYLLINE 400 MG TABLET PO SCH ×3 (08:40→16:36)
[2020-08-18] MEDS: GABAPENTIN 100 MG CAPSULE PO SCH ×2 (08:40→21:37)
[2020-08-18] MEDS: ASPIRIN EC 81 MG TABLET PO SCH (08:40)
[2020-08-18] MEDS: CLOPIDOGREL 75 MG TABLET PO SCH (08:40)
[2020-08-18] MEDS: cilostazoL 100 MG TABLET PO SCH ×2 (08:40→21:36)
[2020-08-18] MEDS: NICOTINE 21 MG/24 HR PATCH TRANSDERM SCH (08:41)
[2020-08-18] MEDS: PANTOPRAZOLE 40 MG TABLET PO SCH (08:41)
[2020-08-18] MEDS: NON-FORMULARY MEDICATION (Fluticasone-Umeclidin-Vilanter [Trelegy Ellipta] 100-62.5-25 mcg INH SCH (08:49)
[2020-08-18] MEDS: ZALEPLON 5 MG CAPSULE PO PRN ×2 (21:36→23:13)
[2020-08-18] MEDS: ENOXAPARIN 40 MG/0.4 ML SYRINGE SUBCUT SCH (23:13)
[2020-08-18] MEDS: cefTRIAXone 1,000 MG in SODIUM CHLORIDE 0.9% 100 ML IV SCH (23:14)
[2020-08-19] MEDS: ALBUTEROL/IPRATROPIUM 3 ML NEB RESP TX SCH ×6 (03:00→23:53)
[2020-08-19] MEDS: methylPREDNISolone SOD SUC 40 MG/1 ML VIAL IV SCH ×2 (05:13→21:13)
[2020-08-19 06:05] LABS: Hematocrit 37.3 VOL% (42.0-52.0); Hemoglobin 12.2 GM/DL (14.0-18.0); Immature Granulocytes % 0.9 %; Lymphocytes # 0.6 10*3/uL (1.4-4.0); Lymphocytes % 5.2 % (21.2-54.2); Mean Corpuscular HGB Conc 32.7 GM/DL (32-36); Mean Corpuscular Volume 97.9 FL (87-102); Mean Platelet Volume 11.7 FL (9.6-12.0); Monocytes % 2.2 % (1.7-12.7); Neutrophils % 91.7 % (38.7-73.9); Platelet Count 142 T/CUMM (130-400); Red Blood Count 3.81 MC/CUMM (3.8-5.5); Red Cell Distribution Width 13.1 % (9.3-17.3); White Blood Count 10.6 T/CUMM (4-12)
[2020-08-19 06:29] LABS: Calcium 8.1 MG/DL (8.5-10.1); Osmolality,Calculated 292.1 MOS/KG (273-304); Potassium 4.2 MMOL/L (3.5-5.1)
[2020-08-19] MEDS: ATORVASTATIN 40 MG TABLET PO SCH (08:31)
[2020-08-19] MEDS: PENTOXIFYLLINE 400 MG TABLET PO SCH ×3 (08:31→16:42)
[2020-08-19] MEDS: CLOPIDOGREL 75 MG TABLET PO SCH (08:31)
[2020-08-19] MEDS: NICOTINE 21 MG/24 HR PATCH TRANSDERM SCH (08:31)
[2020-08-19] MEDS: PANTOPRAZOLE 40 MG TABLET PO SCH (08:31)
[2020-08-19] MEDS: ASPIRIN EC 81 MG TABLET PO SCH (08:32)
[2020-08-19] MEDS: TAMSULOSIN 0.4 MG CAPSULE PO SCH (08:32)
[2020-08-19] MEDS: cilostazoL 100 MG TABLET PO SCH ×2 (08:32→21:11)
[2020-08-19] MEDS: GABAPENTIN 100 MG CAPSULE PO SCH ×2 (08:32→21:11)
[2020-08-19] MEDS: NON-FORMULARY MEDICATION (Fluticasone-Umeclidin-Vilanter [Trelegy Ellipta] 100-62.5-25 mcg INH SCH (09:22)
[2020-08-19 09:26] LABS: Band Neutrophils 2 % (0-10); Lymphocytes 7 % (20-55); Platelet Estimate Adequate; Segmented Neutrophils 88 % (50-85); Total Cells Counted 100
[2020-08-19] MEDS: ZALEPLON 5 MG CAPSULE PO PRN ×2 (21:11→23:19)
[2020-08-19] MEDS: ENOXAPARIN 40 MG/0.4 ML SYRINGE SUBCUT SCH (23:17)
[2020-08-19] MEDS: cefTRIAXone 1,000 MG in SODIUM CHLORIDE 0.9% 100 ML IV SCH (23:19)
[2020-08-20] MEDS: ALBUTEROL/IPRATROPIUM 3 ML NEB RESP TX SCH ×3 (03:31→10:38)
[2020-08-20] MEDS: NICOTINE 21 MG/24 HR PATCH TRANSDERM SCH (09:12)
[2020-08-20] MEDS: NON-FORMULARY MEDICATION (Fluticasone-Umeclidin-Vilanter [Trelegy Ellipta] 100-62.5-25 mcg INH SCH (09:14)
[2020-08-20] MEDS: CLOPIDOGREL 75 MG TABLET PO SCH (09:14)
[2020-08-20] MEDS: PANTOPRAZOLE 40 MG TABLET PO SCH (09:14)
[2020-08-20] MEDS: TAMSULOSIN 0.4 MG CAPSULE PO SCH (09:14)
[2020-08-20] MEDS: ATORVASTATIN 40 MG TABLET PO SCH (09:14)
[2020-08-20] MEDS: PENTOXIFYLLINE 400 MG TABLET PO SCH ×2 (09:14→12:00)
[2020-08-20] MEDS: ASPIRIN EC 81 MG TABLET PO SCH (09:14)
[2020-08-20] MEDS: methylPREDNISolone SOD SUC 40 MG/1 ML VIAL IV SCH (09:15)
[2020-08-20] MEDS: cilostazoL 100 MG TABLET PO SCH (09:15)
[2020-08-20] MEDS: GABAPENTIN 100 MG CAPSULE PO SCH (09:15)
[2020-08-20 13:44] VITALS: BP 158/60
== END 2020-08-20 12:53 | disposition home or self-care (01) | DRG 190 ==
LOC: EDUNIT# → EDBD → N.ED 20:04 → N.EDINP 23:17 → SUATTDRO 23:17 → N.ICU 23:45 → N.TELEN 08-17 17:07
PROVIDERS: ADMIT Internal Medicine; ATTEND Internal Medicine

== ENCOUNTER 2021-02-06 16:14 | Inpatient (IN) ==
[2021-02-06] MEDS ORDERED: SODIUM CHLORIDE 0.9% 1,000 ML IV STA (16:58)
[2021-02-06 17:38] LABS: Basophils # 0.1 10*3/uL (0.0-0.2); Basophils % 1.4 % (0.0-0.8); Eosinophils # 0.3 10*3/uL (0.0-0.87); Eosinophils % 3.1 % (0.00-10.9); Hematocrit 49.4 VOL% (42.0-52.0); Hemoglobin 16.1 GM/DL (14.0-18.0); Immature Granulocytes % 0.3 %; Immature Granulocytes Absolute 0.03 #; Lymphocytes # 1.1 10*3/uL (1.4-4.0); Lymphocytes % 12.4 % (21.2-54.2); Mean Corpuscular HGB Conc 32.6 GM/DL (32-36); Mean Corpuscular Volume 97.6 FL (87-102); Monocytes % 10.5 % (1.7-12.7); Neutrophils % 72.3 % (38.7-73.9); Platelet Count 184 T/CUMM (130-400); Red Blood Count 5.06 MC/CUMM (3.8-5.5); Red Cell Distribution Width 13.6 % (9.3-17.3)
[2021-02-06 17:59] LABS: Alanine Aminotransferase 23 U/L (16-61); Albumin 4.3 G/DL (3.4-5.0); Alkaline Phosphatase 137 U/L (45-117); Aspartate Amino Transferase 19 U/L (0-37); Blood Urea Nitrogen 60 MG/DL (7-18); Calcium 9.2 MG/DL (8.5-10.1); Carbon Dioxide 26 MMOL/L (21-32); Estimated Glom Filtration Rate 32 ML/MIN; Glucose 117 MG/DL (74-106); Osmolality,Calculated 307.6 MOS/KG (273-304); Potassium 4.6 MMOL/L (3.5-5.1); Sodium 146 MMOL/L (136-145); Total Protein 7.5 G/DL (6.4-8.2)
[2021-02-06] MEDS ORDERED: LACTATED RINGERS 1,000 ML IV ONE (19:15)
[2021-02-06] MEDS ORDERED: GLUCAGON 1 MG VIAL IM PRN (19:34)
[2021-02-06] MEDS ORDERED: ONDANSETRON 4 MG/2 ML VIAL IV PRN (19:34)
[2021-02-06] MEDS ORDERED: DOCUSATE SODIUM 100 MG CAPSULE PO PRN (19:34)
[2021-02-06] MEDS ORDERED: ACETAMINOPHEN 325 MG TABLET PO PRN (19:34)
[2021-02-06] MEDS ORDERED: DEXTROSE 50% 25 GM/50 ML VIAL IV PRN (19:34)
[2021-02-06] MEDS: cefTRIAXone 2,000 MG in SODIUM CHLORIDE 0.9% 100 ML IV SCH (20:00)
[2021-02-06] MEDS ORDERED: NITROGLYCERIN SL 0.4 MG TABLET SL PRN (20:04)
[2021-02-06] MEDS: DEXTROSE 5% NACL 0.45% 1,000 ML IV SCH (20:30)
[2021-02-06] MEDS: cilostazoL 100 MG TABLET PO SCH (21:00)
[2021-02-06] MEDS: ENOXAPARIN 40 MG/0.4 ML SYRINGE SUBCUT SCH (21:00)
[2021-02-06] MEDS: THIAMINE 100 MG TABLET PO SCH (22:24)
[2021-02-06] MEDS: guaiFENesin/DM ER 600-30 MG TABLET PO SCH (22:43)
[2021-02-06] MEDS: carvediloL 3.125 MG TABLET PO SCH (22:43)
[2021-02-06] MEDS: LORazepam 2 MG/1 ML VIAL IM PRN (22:48)
[2021-02-06] MEDS ORDERED: HALOPERIDOL 5 MG/ML AMP IM ONE (23:24)
[2021-02-07] MEDS: ALBUTEROL/IPRATROPIUM 3 ML NEB RESP TX SCH ×4 (01:45→20:04)
[2021-02-07] MEDS: DEXTROSE 5% NACL 0.45% 1,000 ML IV SCH ×3 (05:52→21:00)
[2021-02-07 06:57] LABS: Basophils # 0.1 10*3/uL (0.0-0.2); Basophils % 1.4 % (0.0-0.8); Eosinophils # 0.3 10*3/uL (0.0-0.87); Eosinophils % 3.1 % (0.00-10.9); Hemoglobin 15.4 GM/DL (14.0-18.0); Immature Granulocytes % 0.2 %; Immature Granulocytes Absolute 0.02 #; Lymphocytes # 1.6 10*3/uL (1.4-4.0); Lymphocytes % 18.4 % (21.2-54.2); Mean Corpuscular HGB Conc 32.8 GM/DL (32-36); Mean Corpuscular Volume 97.1 FL (87-102); Mean Platelet Volume 11.8 FL (9.6-12.0); Monocytes % 12.5 % (1.7-12.7); Neutrophils % 64.4 % (38.7-73.9); Platelet Count 162 T/CUMM (130-400); Red Blood Count 4.84 MC/CUMM (3.8-5.5); Red Cell Distribution Width 13.4 % (9.3-17.3); White Blood Count 8.7 T/CUMM (4-12)
[2021-02-07 07:08] LABS: Calcium 8.9 MG/DL (8.5-10.1); Osmolality,Calculated 301.7 MOS/KG (273-304); Potassium 4.3 MMOL/L (3.5-5.1)
[2021-02-07] MEDS: CLOPIDOGREL 75 MG TABLET PO SCH (09:07)
[2021-02-07] MEDS: guaiFENesin/DM ER 600-30 MG TABLET PO SCH ×2 (09:07→20:39)
[2021-02-07] MEDS: TAMSULOSIN 0.4 MG CAPSULE PO SCH (09:07)
[2021-02-07] MEDS: THIAMINE 100 MG TABLET PO SCH ×2 (09:07→20:39)
[2021-02-07] MEDS: carvediloL 3.125 MG TABLET PO SCH ×2 (09:07→20:40)
[2021-02-07] MEDS: cilostazoL 100 MG TABLET PO SCH ×2 (09:07→20:39)
[2021-02-07] MEDS: ASPIRIN EC 81 MG TABLET PO SCH (09:08)
[2021-02-07] MEDS: NICOTINE 21 MG/24 HR PATCH TRANSDERM SCH (09:08)
[2021-02-07 12:07] LABS: ABG Base Excess -0.6 MMOL/L (-2.5-2.5); ABG HCO3 23.8 MMOL/L (20-26); ABG Oxygen Saturation 94.9 % (95-100); ABG PO2 75.5 MM HG (80-95); ABG TCO2 20.8 MMOL/L (23-27)
[2021-02-07 13:20] LABS: Bilirubin,Urine Negative (Negative); Blood, Urine Negative (Negative); Glucose,Urine (UA) Negative (Negative); Ketones,Urine 5 mg/dL (Negative); Mucus,Urine Occasional /LPF (Occasional); Nitrite,Urine Negative (Negative); Protein,Urine Negative; RBC,Urine 3 /HPF (0-4); Urine Appearance CLEAR (Clear); Urine Color Yellow (Yellow); Urine Specific Gravity 1.015 (1.001-1.035); Urine Urobilinogen < 2.0 EU/DL (0.2-1.0)
[2021-02-07 13:26] LABS: Barbiturates Screen,Urine Negative (Negative); Benzodiazepines Screen,Urine Negative (Negative); Cannabinoid Screen,Urine Negative (Negative); Opiate Screen,Urine Negative (Negative); Phencyclidine Screen,Urine Negative (Negative)
[2021-02-07] MEDS ORDERED: ZINC OXIDE PASTE 113 GM TUBE TOP PRN (13:54)
[2021-02-07] MEDS ORDERED: TUBERCULIN SKIN TEST 0.1 ML SYRINGE INTRADERM ONE (15:50)
[2021-02-07] MEDS: cefTRIAXone 2,000 MG in SODIUM CHLORIDE 0.9% 100 ML IV SCH (20:34)
[2021-02-07] MEDS: ENOXAPARIN 40 MG/0.4 ML SYRINGE SUBCUT SCH (20:37)
[2021-02-08] MEDS: ALBUTEROL/IPRATROPIUM 3 ML NEB RESP TX SCH ×4 (00:56→20:10)
[2021-02-08] MEDS: LORazepam 2 MG/1 ML VIAL IM PRN ×3 (02:26→21:01)
[2021-02-08 06:24] LABS: Basophils # 0.1 10*3/uL (0.0-0.2); Basophils % 1.4 % (0.0-0.8); Eosinophils # 0.6 10*3/uL (0.0-0.87); Eosinophils % 6.7 % (0.00-10.9); Hematocrit 40.7 VOL% (42.0-52.0); Hemoglobin 13.4 GM/DL (14.0-18.0); Immature Granulocytes % 0.2 %; Immature Granulocytes Absolute 0.02 #; Lymphocytes # 1.4 10*3/uL (1.4-4.0); Lymphocytes % 16.5 % (21.2-54.2); Mean Corpuscular HGB Conc 32.9 GM/DL (32-36); Mean Corpuscular Volume 98.1 FL (87-102); Mean Platelet Volume 11.4 FL (9.6-12.0); Neutrophils % 63.2 % (38.7-73.9); Platelet Count 154 T/CUMM (130-400); Red Blood Count 4.15 MC/CUMM (3.8-5.5); Red Cell Distribution Width 13.4 % (9.3-17.3); White Blood Count 8.5 T/CUMM (4-12)
[2021-02-08 06:42] LABS: Calcium 8.5 MG/DL (8.5-10.1); Osmolality,Calculated 298.4 MOS/KG (273-304); Potassium 3.5 MMOL/L (3.5-5.1)
[2021-02-08] MEDS: THIAMINE 100 MG TABLET PO SCH ×3 (10:28→21:01)
[2021-02-08] MEDS: TAMSULOSIN 0.4 MG CAPSULE PO SCH ×2 (10:28→10:35)
[2021-02-08] MEDS: carvediloL 3.125 MG TABLET PO SCH ×3 (10:28→21:01)
[2021-02-08] MEDS: NICOTINE 21 MG/24 HR PATCH TRANSDERM SCH (10:28)
[2021-02-08] MEDS: ASPIRIN EC 81 MG TABLET PO SCH ×2 (10:28→10:35)
[2021-02-08] MEDS: guaiFENesin/DM ER 600-30 MG TABLET PO SCH ×3 (10:28→21:01)
[2021-02-08] MEDS: cilostazoL 100 MG TABLET PO SCH ×3 (10:28→21:01)
[2021-02-08] MEDS: CLOPIDOGREL 75 MG TABLET PO SCH ×2 (10:28→10:35)
[2021-02-08] MEDS: DEXTROSE 5% NACL 0.45% 1,000 ML IV SCH (18:10)
[2021-02-08] MEDS: ATORVASTATIN 40 MG TABLET PO SCH (21:01)
[2021-02-08] MEDS: ENOXAPARIN 40 MG/0.4 ML SYRINGE SUBCUT SCH (21:01)
[2021-02-09] MEDS: guaiFENesin/DM ER 600-30 MG TABLET PO SCH ×4 (00:05→21:12)
[2021-02-09] MEDS: THIAMINE 100 MG TABLET PO SCH ×4 (00:06→21:12)
[2021-02-09] MEDS: ALBUTEROL/IPRATROPIUM 3 ML NEB RESP TX SCH ×4 (00:25→19:01)
[2021-02-09] MEDS: LORazepam 2 MG/1 ML VIAL IM PRN ×2 (03:40→13:40)
[2021-02-09] MEDS: DEXTROSE 5% NACL 0.45% 1,000 ML IV SCH ×2 (04:46→16:51)
[2021-02-09 05:33] LABS: Basophils # 0.1 10*3/uL (0.0-0.2); Basophils % 1.3 % (0.0-0.8); Eosinophils # 0.7 10*3/uL (0.0-0.87); Eosinophils % 6.6 % (0.00-10.9); Hematocrit 43.7 VOL% (42.0-52.0); Hemoglobin 14.1 GM/DL (14.0-18.0); Immature Granulocytes % 0.4 %; Immature Granulocytes Absolute 0.04 #; Lymphocytes # 1.6 10*3/uL (1.4-4.0); Lymphocytes % 14.9 % (21.2-54.2); Mean Corpuscular HGB Conc 32.3 GM/DL (32-36); Mean Corpuscular Volume 98.6 FL (87-102); Mean Platelet Volume 11.8 FL (9.6-12.0); Monocytes % 10.3 % (1.7-12.7); Neutrophils % 66.5 % (38.7-73.9); Platelet Count 161 T/CUMM (130-400); Red Blood Count 4.43 MC/CUMM (3.8-5.5); Red Cell Distribution Width 13.1 % (9.3-17.3); White Blood Count 10.6 T/CUMM (4-12)
[2021-02-09 06:06] LABS: Calcium 8.9 MG/DL (8.5-10.1); Osmolality,Calculated 294.4 MOS/KG (273-304); Potassium 3.8 MMOL/L (3.5-5.1)
[2021-02-09] MEDS: cilostazoL 100 MG TABLET PO SCH ×4 (08:42→23:58)
[2021-02-09] MEDS: ASPIRIN EC 81 MG TABLET PO SCH (08:42)
[2021-02-09] MEDS: carvediloL 3.125 MG TABLET PO SCH ×4 (08:42→23:58)
[2021-02-09] MEDS: CLOPIDOGREL 75 MG TABLET PO SCH (08:42)
[2021-02-09] MEDS: TAMSULOSIN 0.4 MG CAPSULE PO SCH (08:43)
[2021-02-09] MEDS: NICOTINE 21 MG/24 HR PATCH TRANSDERM SCH (08:44)
[2021-02-09] MEDS: ATORVASTATIN 40 MG TABLET PO SCH ×3 (21:02→23:58)
[2021-02-09] MEDS: ENOXAPARIN 40 MG/0.4 ML SYRINGE SUBCUT SCH (21:02)
[2021-02-10] MEDS: ALBUTEROL/IPRATROPIUM 3 ML NEB RESP TX SCH ×4 (00:32→19:12)
[2021-02-10] MEDS: LORazepam 2 MG/1 ML VIAL IM PRN ×2 (03:12→20:38)
[2021-02-10] MEDS: DEXTROSE 5% NACL 0.45% 1,000 ML IV SCH (03:17)
[2021-02-10 06:12] LABS: Basophils # 0.1 10*3/uL (0.0-0.2); Basophils % 1.2 % (0.0-0.8); Eosinophils # 0.7 10*3/uL (0.0-0.87); Eosinophils % 8.8 % (0.00-10.9); Hemoglobin 14.2 GM/DL (14.0-18.0); Immature Granulocytes % 0.4 %; Immature Granulocytes Absolute 0.03 #; Lymphocytes # 1.6 10*3/uL (1.4-4.0); Lymphocytes % 18.9 % (21.2-54.2); Mean Corpuscular Volume 97.3 FL (87-102); Mean Platelet Volume 11.7 FL (9.6-12.0); Monocytes % 10.9 % (1.7-12.7); Neutrophils % 59.8 % (38.7-73.9); Platelet Count 160 T/CUMM (130-400); Red Blood Count 4.42 MC/CUMM (3.8-5.5); White Blood Count 8.3 T/CUMM (4-12)
[2021-02-10 06:14] LABS: Calcium 8.4 MG/DL (8.5-10.1); Osmolality,Calculated 286.7 MOS/KG (273-304); Potassium 3.8 MMOL/L (3.5-5.1)
[2021-02-10] MEDS: guaiFENesin/DM ER 600-30 MG TABLET PO SCH ×2 (08:33→20:38)
[2021-02-10] MEDS: cilostazoL 100 MG TABLET PO SCH ×2 (08:33→20:38)
[2021-02-10] MEDS: carvediloL 3.125 MG TABLET PO SCH ×2 (08:33→20:38)
[2021-02-10] MEDS: THIAMINE 100 MG TABLET PO SCH ×2 (08:33→20:38)
[2021-02-10] MEDS: TAMSULOSIN 0.4 MG CAPSULE PO SCH (08:33)
[2021-02-10] MEDS: NICOTINE 21 MG/24 HR PATCH TRANSDERM SCH (08:33)
[2021-02-10] MEDS: CLOPIDOGREL 75 MG TABLET PO SCH (08:33)
[2021-02-10] MEDS: ASPIRIN EC 81 MG TABLET PO SCH (08:33)
[2021-02-10] MEDS: ENOXAPARIN 40 MG/0.4 ML SYRINGE SUBCUT SCH (20:38)
[2021-02-10] MEDS: ATORVASTATIN 40 MG TABLET PO SCH (20:38)
[2021-02-11] MEDS: ALBUTEROL/IPRATROPIUM 3 ML NEB RESP TX SCH ×4 (00:43→19:10)
[2021-02-11] MEDS: LORazepam 2 MG/1 ML VIAL IM PRN (03:08)
[2021-02-11] MEDS: DEXTROSE 5% NACL 0.45% 1,000 ML IV SCH ×3 (03:45→17:02)
[2021-02-11 05:43] LABS: Basophils # 0.1 10*3/uL (0.0-0.2); Basophils % 1.2 % (0.0-0.8); Eosinophils # 0.6 10*3/uL (0.0-0.87); Eosinophils % 7.8 % (0.00-10.9); Hemoglobin 14.2 GM/DL (14.0-18.0); Immature Granulocytes % 0.4 %; Immature Granulocytes Absolute 0.03 #; Lymphocytes # 1.6 10*3/uL (1.4-4.0); Lymphocytes % 20.1 % (21.2-54.2); Mean Corpuscular HGB Conc 34.6 GM/DL (32-36); Mean Corpuscular Volume 93.8 FL (87-102); Mean Platelet Volume 11.5 FL (9.6-12.0); Monocytes % 11.6 % (1.7-12.7); Neutrophils % 58.9 % (38.7-73.9); Platelet Count 159 T/CUMM (130-400); Red Blood Count 4.37 MC/CUMM (3.8-5.5); Red Cell Distribution Width 12.8 % (9.3-17.3); White Blood Count 7.7 T/CUMM (4-12)
[2021-02-11 06:04] LABS: Calcium 8.8 MG/DL (8.5-10.1); Potassium 3.3 MMOL/L (3.5-5.1)
[2021-02-11] MEDS: guaiFENesin/DM ER 600-30 MG TABLET PO SCH ×2 (08:53→20:59)
[2021-02-11] MEDS: cilostazoL 100 MG TABLET PO SCH ×2 (08:53→20:59)
[2021-02-11] MEDS: POTASSIUM CHLORIDE 20 MEQ TABLET PO PRN ×3 (08:53→15:11)
[2021-02-11] MEDS: THIAMINE 100 MG TABLET PO SCH ×2 (08:53→21:00)
[2021-02-11] MEDS: ASPIRIN EC 81 MG TABLET PO SCH (08:53)
[2021-02-11] MEDS: CLOPIDOGREL 75 MG TABLET PO SCH (08:53)
[2021-02-11] MEDS: TAMSULOSIN 0.4 MG CAPSULE PO SCH (08:54)
[2021-02-11] MEDS: carvediloL 3.125 MG TABLET PO SCH ×2 (08:54→21:01)
[2021-02-11] MEDS: NICOTINE 21 MG/24 HR PATCH TRANSDERM SCH (08:54)
[2021-02-11] MEDS ORDERED: rOPINIRole 0.25 MG TABLET PO PRN (13:07)
[2021-02-11] MEDS ORDERED: METHOCARBAMOL 750 MG TABLET PO PRN (13:07)
[2021-02-11] MEDS ORDERED: diphenhydrAMINE 50 MG/1 ML VIAL IV PRN (13:07)
[2021-02-11] MEDS ORDERED: HydrOXYzine PAMOATE 25 MG CAPSULE PO PRN (13:07)
[2021-02-11] MEDS ORDERED: LORazepam 1 MG TABLET PO SCH (14:00)
[2021-02-11] MEDS: ENOXAPARIN 40 MG/0.4 ML SYRINGE SUBCUT SCH (21:00)
[2021-02-11] MEDS: ATORVASTATIN 40 MG TABLET PO SCH (21:00)
[2021-02-11] MEDS: FOLIC ACID 1 MG TABLET PO SCH (21:00)
[2021-02-11] MEDS: LACTULOSE 20 GM/30 ML UDCUP PO SCH (21:00)
[2021-02-12] MEDS: ALBUTEROL/IPRATROPIUM 3 ML NEB RESP TX SCH ×4 (00:06→19:18)
[2021-02-12] MEDS: DEXTROSE 5% NACL 0.45% 1,000 ML IV SCH ×3 (02:30→22:26)
[2021-02-12 05:37] LABS: Basophils # 0.1 10*3/uL (0.0-0.2); Basophils % 1.1 % (0.0-0.8); Eosinophils # 0.5 10*3/uL (0.0-0.87); Eosinophils % 7.4 % (0.00-10.9); Hematocrit 37.2 VOL% (42.0-52.0); Hemoglobin 12.4 GM/DL (14.0-18.0); Immature Granulocytes % 0.3 %; Immature Granulocytes Absolute 0.02 #; Lymphocytes # 1.5 10*3/uL (1.4-4.0); Lymphocytes % 23.3 % (21.2-54.2); Mean Corpuscular HGB Conc 33.3 GM/DL (32-36); Mean Corpuscular Volume 95.9 FL (87-102); Mean Platelet Volume 12.1 FL (9.6-12.0); Monocytes % 12.1 % (1.7-12.7); Neutrophils % 55.8 % (38.7-73.9); Platelet Count 158 T/CUMM (130-400); Red Blood Count 3.88 MC/CUMM (3.8-5.5); Red Cell Distribution Width 13.1 % (9.3-17.3); White Blood Count 6.4 T/CUMM (4-12)
[2021-02-12 06:05] LABS: Calcium 8.2 MG/DL (8.5-10.1); Osmolality,Calculated 289.7 MOS/KG (273-304); Potassium 3.4 MMOL/L (3.5-5.1)
[2021-02-12 06:09] LABS: Eosinophils 11 % (0-10); Lymphocytes 22 % (20-55); Platelet Estimate Normal; Segmented Neutrophils 61 % (50-85)
[2021-02-12 06:10] LABS: Total Cells Counted 100
[2021-02-12] MEDS: POTASSIUM CHLORIDE 20 MEQ TABLET PO PRN ×3 (06:19→12:45)
[2021-02-12] MEDS: cilostazoL 100 MG TABLET PO SCH ×2 (09:10→20:43)
[2021-02-12] MEDS: MULTIVITAMIN (CENTRUM) TABLET PO SCH (09:11)
[2021-02-12] MEDS: THIAMINE 100 MG TABLET PO SCH ×2 (09:11→20:42)
[2021-02-12] MEDS: ASPIRIN EC 81 MG TABLET PO SCH (09:11)
[2021-02-12] MEDS: CLOPIDOGREL 75 MG TABLET PO SCH (09:11)
[2021-02-12] MEDS: guaiFENesin/DM ER 600-30 MG TABLET PO SCH ×2 (09:11→20:42)
[2021-02-12] MEDS: LACTULOSE 20 GM/30 ML UDCUP PO SCH ×3 (09:11→20:53)
[2021-02-12] MEDS: TAMSULOSIN 0.4 MG CAPSULE PO SCH (09:11)
[2021-02-12] MEDS: carvediloL 3.125 MG TABLET PO SCH ×2 (09:11→20:42)
[2021-02-12] MEDS: NICOTINE 21 MG/24 HR PATCH TRANSDERM SCH (12:20)
[2021-02-12] MEDS ORDERED: cefTRIAXone 1,000 MG in SODIUM CHLORIDE 0.9% 100 ML IV SCH (13:00)
[2021-02-12] MEDS: methylPREDNISolone SOD SUC 40 MG/1 ML VIAL IV SCH (13:06)
[2021-02-12] MEDS: AZITHROMYCIN INJ 500 MG in SODIUM CHLORIDE 0.9% 250 ML IV SCH (14:25)
[2021-02-12] MEDS: FOLIC ACID 1 MG TABLET PO SCH (20:43)
[2021-02-12] MEDS: ATORVASTATIN 40 MG TABLET PO SCH (20:43)
[2021-02-12] MEDS: ENOXAPARIN 40 MG/0.4 ML SYRINGE SUBCUT SCH (20:43)
[2021-02-13] MEDS: ALBUTEROL/IPRATROPIUM 3 ML NEB RESP TX SCH ×4 (00:56→19:58)
[2021-02-13] MEDS: methylPREDNISolone SOD SUC 40 MG/1 ML VIAL IV SCH ×2 (05:37→17:09)
[2021-02-13 05:53] LABS: Basophils % 0.3 % (0.0-0.8); Eosinophils % 0.1 % (0.00-10.9); Hematocrit 35.4 VOL% (42.0-52.0); Hemoglobin 11.8 GM/DL (14.0-18.0); Immature Granulocytes % 0.4 %; Immature Granulocytes Absolute 0.03 #; Lymphocytes # 1.2 10*3/uL (1.4-4.0); Lymphocytes % 15.6 % (21.2-54.2); Mean Corpuscular HGB Conc 33.3 GM/DL (32-36); Mean Corpuscular Volume 96.2 FL (87-102); Mean Platelet Volume 11.5 FL (9.6-12.0); Monocytes % 9.8 % (1.7-12.7); Neutrophils % 73.8 % (38.7-73.9); Platelet Count 166 T/CUMM (130-400); Red Blood Count 3.68 MC/CUMM (3.8-5.5); Red Cell Distribution Width 13.2 % (9.3-17.3); White Blood Count 7.7 T/CUMM (4-12)
[2021-02-13 06:09] LABS: Calcium 8.5 MG/DL (8.5-10.1)
[2021-02-13] MEDS ORDERED: MAGNESIUM SULF RIDER 4 GM/100 ML PREMIX IV ONE (08:30)
[2021-02-13] MEDS: THIAMINE 100 MG TABLET PO SCH ×2 (09:43→20:22)
[2021-02-13] MEDS: guaiFENesin/DM ER 600-30 MG TABLET PO SCH ×2 (09:43→20:22)
[2021-02-13] MEDS: MULTIVITAMIN (CENTRUM) TABLET PO SCH (09:43)
[2021-02-13] MEDS: cilostazoL 100 MG TABLET PO SCH ×2 (09:43→20:22)
[2021-02-13] MEDS: CLOPIDOGREL 75 MG TABLET PO SCH (09:43)
[2021-02-13] MEDS: TAMSULOSIN 0.4 MG CAPSULE PO SCH (09:43)
[2021-02-13] MEDS: LACTULOSE 20 GM/30 ML UDCUP PO SCH ×2 (09:43→20:22)
[2021-02-13] MEDS: carvediloL 3.125 MG TABLET PO SCH ×2 (09:43→20:22)
[2021-02-13] MEDS: ASPIRIN EC 81 MG TABLET PO SCH (09:43)
[2021-02-13] MEDS: NICOTINE 21 MG/24 HR PATCH TRANSDERM SCH (09:44)
[2021-02-13] MEDS: AZITHROMYCIN INJ 500 MG in SODIUM CHLORIDE 0.9% 250 ML IV SCH (13:39)
[2021-02-13] MEDS: DEXTROSE 5% NACL 0.45% 1,000 ML IV SCH ×2 (17:14→17:59)
[2021-02-13] MEDS: FOLIC ACID 1 MG TABLET PO SCH (20:22)
[2021-02-13] MEDS: ATORVASTATIN 40 MG TABLET PO SCH (20:22)
[2021-02-13] MEDS: ENOXAPARIN 40 MG/0.4 ML SYRINGE SUBCUT SCH (20:22)
[2021-02-14] MEDS: ALBUTEROL/IPRATROPIUM 3 ML NEB RESP TX SCH ×4 (01:20→19:25)
[2021-02-14] MEDS: DEXTROSE 5% NACL 0.45% 1,000 ML IV SCH ×2 (05:12→17:42)
[2021-02-14] MEDS: methylPREDNISolone SOD SUC 40 MG/1 ML VIAL IV SCH ×2 (05:36→17:37)
[2021-02-14 05:37] LABS: Calcium 8.4 MG/DL (8.5-10.1); Osmolality,Calculated 291.8 MOS/KG (273-304); Potassium 3.9 MMOL/L (3.5-5.1)
[2021-02-14] MEDS: LACTULOSE 20 GM/30 ML UDCUP PO SCH ×2 (09:28→20:58)
[2021-02-14] MEDS: MULTIVITAMIN (CENTRUM) TABLET PO SCH (09:28)
[2021-02-14] MEDS: TAMSULOSIN 0.4 MG CAPSULE PO SCH (09:28)
[2021-02-14] MEDS: carvediloL 3.125 MG TABLET PO SCH ×2 (09:28→20:58)
[2021-02-14] MEDS: CLOPIDOGREL 75 MG TABLET PO SCH (09:28)
[2021-02-14] MEDS: NICOTINE 21 MG/24 HR PATCH TRANSDERM SCH (09:28)
[2021-02-14] MEDS: THIAMINE 100 MG TABLET PO SCH ×2 (09:28→20:58)
[2021-02-14] MEDS: ASPIRIN EC 81 MG TABLET PO SCH (09:28)
[2021-02-14] MEDS: cilostazoL 100 MG TABLET PO SCH ×2 (09:28→20:58)
[2021-02-14] MEDS: guaiFENesin/DM ER 600-30 MG TABLET PO SCH ×2 (09:28→20:58)
[2021-02-14] MEDS: AZITHROMYCIN INJ 500 MG in SODIUM CHLORIDE 0.9% 250 ML IV SCH (13:07)
[2021-02-14] MEDS: ENOXAPARIN 40 MG/0.4 ML SYRINGE SUBCUT SCH (20:58)
[2021-02-14] MEDS: FOLIC ACID 1 MG TABLET PO SCH (20:58)
[2021-02-14] MEDS: ATORVASTATIN 40 MG TABLET PO SCH (20:58)
[2021-02-15] MEDS: ALBUTEROL/IPRATROPIUM 3 ML NEB RESP TX SCH ×4 (00:21→13:19)
[2021-02-15] MEDS: DEXTROSE 5% NACL 0.45% 1,000 ML IV SCH ×2 (03:57→09:30)
[2021-02-15] MEDS: methylPREDNISolone SOD SUC 40 MG/1 ML VIAL IV SCH (05:05)
[2021-02-15 07:24] LABS: Hematocrit 34.3 VOL% (42.0-52.0); Hemoglobin 11.4 GM/DL (14.0-18.0); Immature Granulocytes % 0.5 %; Immature Granulocytes Absolute 0.05 #; Lymphocytes # 1.3 10*3/uL (1.4-4.0); Lymphocytes % 13.5 % (21.2-54.2); Mean Corpuscular HGB Conc 33.2 GM/DL (32-36); Mean Corpuscular Volume 96.6 FL (87-102); Monocytes % 5.6 % (1.7-12.7); Neutrophils % 80.4 % (38.7-73.9); Platelet Count 182 T/CUMM (130-400); Red Blood Count 3.55 MC/CUMM (3.8-5.5); Red Cell Distribution Width 13.3 % (9.3-17.3); White Blood Count 9.3 T/CUMM (4-12)
[2021-02-15] MEDS: MULTIVITAMIN (CENTRUM) TABLET PO SCH (09:30)
[2021-02-15] MEDS: ASPIRIN EC 81 MG TABLET PO SCH (09:30)
[2021-02-15] MEDS: TAMSULOSIN 0.4 MG CAPSULE PO SCH (09:30)
[2021-02-15] MEDS: LACTULOSE 20 GM/30 ML UDCUP PO SCH (09:30)
[2021-02-15] MEDS: carvediloL 3.125 MG TABLET PO SCH (09:30)
[2021-02-15] MEDS: NICOTINE 21 MG/24 HR PATCH TRANSDERM SCH (09:31)
[2021-02-15] MEDS: cilostazoL 100 MG TABLET PO SCH (09:31)
[2021-02-15] MEDS: guaiFENesin/DM ER 600-30 MG TABLET PO SCH (09:31)
[2021-02-15] MEDS: CLOPIDOGREL 75 MG TABLET PO SCH (09:31)
[2021-02-15] MEDS: THIAMINE 100 MG TABLET PO SCH (09:31)
[2021-02-15] MEDS ORDERED: INFLUENZA VIRUS VACCINE 0.5 ML SYRINGE IM ONE (10:58)
[2021-02-15] MEDS: AZITHROMYCIN INJ 500 MG in SODIUM CHLORIDE 0.9% 250 ML IV SCH (15:40)
[2021-02-15 16:02] VITALS: BP 159/72
== END 2021-02-15 17:18 | DRG 884 ==
LOC: EDBD → EDUNIT# → N.EDINP 16:14 → N.ED 16:14 → SUATTDRO 19:34 → N.3E 22:35 → SUATTDRO 02-10 10:25
PROVIDERS: ADMIT Hospitalist; ATTEND Internal Medicine